=== PATIENT | male | born 1960 | race Caucasian/White ===

== ENCOUNTER 2018-09-21 13:03 | Emergency (ER) | payer OTHER ==
[2018-09-21 13:35] LABS: #Basophils 0.1 thou/uL (0.0-0.2); #Eosinphils 0.2 thou/uL (0.0-0.7); #Lymphocytes 2.9 thou/uL (1.20-3.40); #Monocytes 1.2 thou/uL (0.11-0.59); #Neutrophils 4.2 thou/uL (1.40-6.50); %Basophils 0.9 % (0.0-1.0); %Eosinophils 1.8 % (0.0-10.0); %Lymphocytes 33.9 % (21.0-51.0); %Monocytes 14.3 % (0.0-10.0); %Neutrophils 49.1 % (42.0-75.0); Hemoglobin 16.4 g/dL (14.0-18.0); Mean Corpuscular HGB CONC 33.9 g/dL (32.0-36.0); Mean Corpuscular Hemoglobin 29.5 pg (27.0-31.0); Mean Corpuscular Volume 87.1 fL (78.0-98.0); Mean Platelet Volume 8.7 fL (7.4-10.4); Platelet Count 294 thou/uL (130-400); RBC Distribution Width 11.5 % (11.5-14.5); Red Blood Cell (RBC) Count 5.55 mill/uL (4.70-6.10); White Blood Cell (WBC) Count 8.6 thou/uL (4.8-10.8)
[2018-09-21 13:44] LABS: INR-International Normal Ratio 0.9; PTT 27.9 SEC (22.9-36.1); Prothrombin Time 12.4 SEC (12.0-14.7)
--- NOTE | 2018-09-21 13:47 | RAD ---
CHEST 1 VIEW: HISTORY: Chest pain, COPD, right bundle branch block. FINDINGS: Monitor leads overlie the chest. Heart size is normal. The lungs are clear. IMPRESSION: No acute intrathoracic disease. No old studies. POS: [facility]
[2018-09-21 13:58] LABS: Bilirubin Negative (Negative); Blood, Urine Negative (Negative); Clarity CLEAR (Clear); Glucose, Urine (Dipstick) Negative (Negative); Leukocyte Negative (Negative); Nitrite Negative (Negative); Protein, Urine (Dipstick) Negative (Neg-Trace); Specific Gravity, Urine 1.006 (1.002-1.036); Urobilinogen 0.2 mg/dL (0.2-1.0)
[2018-09-21 13:59] LABS: ALT (SGPT) 31 U/L (8-55); AST (SGOT) 21 U/L (5-34); Albumin 4.7 g/dL (3.5-5.0); Alkaline Phosphatase 105 U/L (40-150); Anion Gap 15 mmol/L (10-20); BUN (Urea Nitrogen) 15 mg/dL (8.4-25.7); Bilirubin, Total 0.5 mg/dL (0.2-1.2); CK (CPK) 157 U/L (30-200); Calc. Creatinine Clearance 0 mL/min (70-130); Calcium 9.9 mg/dL (7.8-10.44); Carbon Dioxide 21 mmol/L (22-29); Chloride 105 mmol/L (98-107); Estimated GFR-MDRD 71; Globulin 3.1 g/dL (2.4-3.5); Glucose 93 mg/dL (70-105); Lipase 24 U/L (8-78); Potassium 4.1 mmol/L (3.5-5.1); Protein, Total 7.8 g/dL (6.0-8.3); Sodium 137 mmol/L (136-145)
--- NOTE | 2018-09-21 14:05 | CT ---
HEAD CT WITHOUT CONTRAST: HISTORY: Left arm and leg weakness. Numbness starting last night. Previous CVA with right-sided deficit. Wo rsening than normal expressive aphasia. FINDINGS: Malacic and gliotic change in the left frontal lobe compatible with remote insult. The remainder of the left cerebrum and right cerebrum demonstrate preservation of cortical gudino-white matter different iation. No evidence of hydrocephalus. No midline shift. Basilar cisterns are patent. Hypoattenuation of the left cerebellar hemisphere is noted and may represent an indeterminate insult. Calvarium is intact. Adequate aeration of the paranasal sinuses. Partial [id number] of the left mastoid air cells. IMPRESSION: Findings suggesting remote insult in the left cerebrum and left cerebellar hemisphere. Results of the study discussed with Dr. Morrell 09/21/2018 at 1:54 p.m. CODE SHANNON POS: [facility]
[2018-09-21] MEDS ORDERED: Lorazepam 2 MG/ML VIAL ONE (14:16)
--- NOTE | 2018-09-21 14:57 | CT ---
CT ANGIOGRAM OF THE HEAD CT ANGIOGRAM OF THE NECK: HISTORY: Weakness. Worsening expressive aphasia. Altered mental status. Hypertension. TECHNIQUE: A CT angiogram of the head and neck are performed in the axial plane. Three-dimensional reformatted images are submitted for interpretation. FINDINGS: POSTCONTRAST HEAD CT: Malacic changes in the left cerebrum and left cerebellum. Otherwise, cortical gudino-white matter diff erentiation is preserved. Calvarium is intact. Adequate aeration of the sinuses and mastoid air cells. Bilateral ocular lenses are appropriately located. Both globes are intact. Retrobulbar fat is prese rved. Symmetric attenuation of the optic nerves and ocular rectus muscles. Symmetric attenuation of the parotid and submandibular glands. Thyroid gland is unremarkable. Symmetric attenuation of the sternocleidomastoid muscles. No evidence of lymphadenopathy by size criteria. Cervical spine vertebral body height is maintained. There is no fracture. There varying degrees of central canal stenosis and neural foraminal narrowing on the basis of degenerative change. Upper mediastinum and lung apices do not demonstrate any acute pathology. CT ANGIOGRAM: The aortic arch has appropriate enhancement and luminal diameter. RIGHT CAROTID: The right innominate artery origin has appropriate enhancement and luminal diameter. Mild stenosis i n the proximal aspect of the innominate artery. The right carotid artery has appropriate enhancement and luminal diameter. Minimal calcification of the distal common carotid artery. Carotid bifurcati on and internal carotid artery have appropriate enhancement and luminal diameter. LEFT CAROTID: The left carotid artery origin has appropriate enhancement and luminal diameter. The common carotid artery, carotid bifurcation, and internal carotid artery have overall appropriate enhancement and lum inal diameter. There is a short segment of calcified and noncalcified plaque in the proximal left in ternal carotid artery. Based upon NASCET criteria, there is no significant stenosis. Sagittal image s demonstrate small outpouching of the left carotid bifurcation. The proximal and mid internal carot id artery have appropriate enhancement and luminal diameter. Both cervical vertebral arteries are patent throughout their course in the neck. Left vertebral yamila ry is dominant. Both subclavian arteries are unremarkable. CT ANGIOGRAM OF THE HEAD: The distal cervical and intracranial internal carotid arteries have appropriate enhancement and lumin al diameter. There is atherosclerosis in both cavernous and paraclinoid segments. No evidence of an eurysm at the level of the [place] of [place]. ANTERIOR CIRCULATION: Symmetric enhancement and luminal diameter of the A1 and M1 segments. Proximal A2 segments and MCA b ranches are symmetric. No significant stenosis or occlusion. POSTERIOR CIRCULATION: The right vertebral artery has a PICA artery origin. The left vertebral artery is the sole supplying vessel to the basilar artery which is diminutive. The left and right MATE FIRST have origins. IMPRESSION: 1. No evidence of significant stenosis at the level of the [place] of [place]. No evidence of vascula r occlusion or thrombosis. 2. No significant stenosis of the cervical carotid arteries based upon NASCET criteria. There is ca lcified and noncalcified plaque involving the left carotid artery as described above. There is resul tant mild narrowing based upon NASCET criteria. 3. No evidence of aneurysm of the [place] of [place]. 4. Results of the study discussed with Dr. Renard Morrell 09/21/2018 at 2:22 p.m. CODE CR POS: [facility]
[2018-09-21] MEDS ORDERED: Morphine 4 MG/ML VIAL ONE (15:17)
[2018-09-21] MEDS ORDERED: ISOVUE-370 76%-LOCM 1 ML ONE (15:28)
[2018-09-21] MEDS ORDERED: Ketorolac Tromethamine 30 MG/ML VIAL ONE (18:12)
--- NOTE | 2018-09-25 15:16 | CT ---
FCT ANGIOGRAM OF THE HEAD CT ANGIOGRAM OF THE NECK: HISTORY: Weakness. Worsening expressive aphasia. Altered mental status. Hypertension. TECHNIQUE: A CT angiogram of the head and neck are performed in the axial plane. Three-dimensional reformatted images are submitted for interpretation. FINDINGS: POSTCONTRAST HEAD CT: Malacic changes in the left cerebrum and left cerebellum. Otherwise, cortical gudino-white matter differentiation is preserved. Calvarium is intact. Adequate aeration of the sinuses and mastoid air cells. Bilateral ocular lenses are appropriately located. Both globes are intact. Retrobulbar fat is preserved. Symmetric attenuation of the optic nerves and ocular rectus muscles. Symmetric attenuation of the parotid and submandibular glands. Thyroid gland is unremarkable. Symmetric attenuation of the sternocleidomastoid muscles. No evidence of lymphadenopathy by size criteria. Cervical spine vertebral body height is maintained. There is no fracture. There varying degrees of central canal stenosis and neural foraminal narrowing on the basis of degenerative change. Upper mediastinum and lung apices do not demonstrate any acute pathology. CT ANGIOGRAM: The aortic arch has appropriate enhancement and luminal diameter. RIGHT CAROTID: The right innominate artery origin has appropriate enhancement and luminal diameter. Mild stenosis in the proximal aspect of the innominate artery. The right carotid artery has appropriate enhancement and luminal diameter. Minimal calcification of the distal common carotid artery. Carotid bifurcation and internal carotid artery have appropriate enhancement and luminal diameter. LEFT CAROTID: The left carotid artery origin has appropriate enhancement and luminal diameter. The common carotid artery, carotid bifurcation, and internal carotid artery have overall appropriate enhancement and luminal diameter. There is a short segment of calcified and noncalcified plaque in the proximal left internal carotid artery. Based upon NASCET criteria, there is no significant stenosis. Sagittal images demonstrate small outpouching of the left carotid bifurcation. The proximal and mid internal carotid artery have appropriate enhancement and luminal diameter. Both cervical vertebral arteries are patent throughout their course in the neck. Left vertebral artery is dominant. Both subclavian arteries are unremarkable. CT ANGIOGRAM OF THE HEAD: The distal cervical and intracranial internal carotid arteries have appropriate enhancement and luminal diameter. There is atherosclerosis in both cavernous and paraclinoid segments. No evidence of aneurysm at the level of the eagle of [place]. ANTERIOR CIRCULATION: Symmetric enhancement and luminal diameter of the A1 and M1 segments. Proximal A2 segments and MCA branches are symmetric. No significant stenosis or occlusion. POSTERIOR CIRCULATION: The right vertebral artery has a PICA artery origin. The left vertebral artery is the sole supplying vessel to the basilar artery which is diminutive. The left and right [employer] have origins. IMPRESSION: 1. No evidence of significant stenosis at the level of the eagle of [place]. No evidence of vascular occlusion or thrombosis. 2. No significant stenosis of the cervical carotid arteries based upon NASCET criteria. There is calcified and noncalcified plaque involving the left carotid artery as described above. There is resultant mild narrowing based upon NASCET criteria. 3. No evidence of aneurysm of the eagle of [place]. 4. Results of the study discussed with Dr. Renard Morrell 09/21/2018 at 2:22 p.m. CODE CR Transcribed Date/Time: 09/25/2018 3:16 PM
== END 2018-09-21 20:00 | disposition short-term general hospital (02) ==
LOC: EEVIPCON 13:03 → ERS 13:03
DX: R07.89 Other chest pain (principal); R53.1 Weakness; J44.9 Chronic obstructive pulmonary disease, unspecified; E03.9 Hypothyroidism, unspecified; E78.5 Hyperlipidemia, unspecified; I10 Essential (primary) hypertension; F43.10 Post-traumatic stress disorder, unspecified; Z79.82 Long term (current) use of aspirin; Z86.73 Personal history of transient ischemic attack (TIA), and cerebral infarction without residual deficits; Z79.899 Other long term (current) drug therapy
CPT/HCPCS: 36415; 36416; 70450; 70496; 70498; 71045; 80053; 81003; 82550; 83690; 83880; 84484; 85025; 85610; 85730; 93005; 96374; 96375; J1885; J2060; J2270; Q9966

== ENCOUNTER 2021-06-21 22:40 | Inpatient (IN) | payer OTHER ==
[~2021-06-21 22:40] MED LIST: Iopamidol-370 76% 500 ML 1 ML ONE
[2021-06-21 23:25] LABS: #Basophils 0.1 thou/uL (0.0-0.2); #Eosinphils 0.2 thou/uL (0.0-0.7); #Lymphocytes 2.6 thou/uL (1.20-3.40); #Monocytes 1.1 thou/uL (0.11-0.59); %Basophils 0.9 % (0.0-1.0); %Eosinophils 2.7 % (0.0-10.0); %Lymphocytes 28.6 % (21.0-51.0); %Monocytes 12.1 % (0.0-10.0); %Neutrophils 55.6 % (42.0-75.0); Hemoglobin 15.4 g/dL (14.0-18.0); Mean Corpuscular HGB CONC 34.3 g/dL (32.0-36.0); Mean Corpuscular Hemoglobin 30.8 pg (27.0-31.0); Mean Platelet Volume 8.5 fL (7.4-10.4); Platelet Count 256 thou/uL (130-400); RBC Distribution Width 11.7 % (11.5-14.5)
[2021-06-21 23:39] LABS: Prothrombin Time 13.3 sec (12.0-14.7)
[2021-06-21] MEDS ORDERED: levETIRAcetam in NS 1,500 MG in Premix Bag 1 BAG IVPB SCH (23:45)
[2021-06-21 23:48] LABS: Acetaminophen Less than 6.0 mcg/mL (10.0-30.0); Alcohol Less than 10 mg/dL (Less than 10); Salicylate Less than 8.0 mg/dL (15.0-30.0)
[2021-06-21 23:49] LABS: ALT (SGPT) 23 U/L (8-55); AST (SGOT) 19 U/L (5-34); Albumin 4.1 g/dL (3.5-5.0); Alkaline Phosphatase 77 U/L (40-110); Anion Gap 14 mmol/L (10-20); BUN (Urea Nitrogen) 20 mg/dL (8.4-25.7); Bilirubin, Total 0.4 mg/dL (0.2-1.2); Calc. Creatinine Clearance 0 mL/min (70-130); Calcium 8.8 mg/dL (7.8-10.44); Carbon Dioxide 21 mmol/L (22-29); Chloride 109 mmol/L (98-107); Globulin 2.6 g/dL (2.4-3.5); Glucose 91 mg/dL (70-105); Potassium 3.6 mmol/L (3.5-5.1); Protein, Total 6.7 g/dL (6.0-8.3); Sodium 140 mmol/L (136-145)
[2021-06-22] MEDS ORDERED: Acetaminophen 325 MG Suppository ONE (00:17)
[2021-06-22 05:08] LABS: Troponin I Less than 0.010 ng/mL (< 0.028)
[2021-06-22 05:12] LABS: Amphetamine Not Detected (NotDetected); Barbiturates Screen Not Detected (NotDetected); Benzodiazepine Screen Not Detected (NotDetected); Cocaine Metabolite Screen Not Detected (NotDetected); Methadone Not Detected (NotDetected); Methamphetamine Not Detected (NotDetected); Opiate Screen Not Detected (NotDetected); Oxycodone Screen Not Detected (NotDetected); Phencyclidine (PCP) Not Detected (NotDetected); THC/Cannabinoid Screen Not Detected (NotDetected); Tricyclic Screen Not Detected (NotDetected)
[2021-06-22 06:07] LABS: SARS-CoV-2 NAA Rapid Test Not Detected (NotDetected)
[2021-06-22 07:29] LABS: Troponin I 0.031 ng/mL (< 0.028)
[2021-06-22] MEDS ORDERED: levETIRAcetam in NS 100 ML ONE (08:21)
[2021-06-22] MEDS ORDERED: Heparin 10,000 UNITS/ 10 ML VIAL ONE (08:21)
[2021-06-22] MEDS: levETIRAcetam in NS 1,000 MG in Premix Bag 1 BAG IVPB SCH ×2 (10:33→20:53)
[2021-06-22] MEDS: Heparin 5,000 UNITS/ML VIAL SC SCH ×3 (10:42→20:53)
[2021-06-22 10:45] VITALS: BMI 32.3
[2021-06-22] MEDS: Sodium Chloride 0.9% 1,000 ML IV SCH (11:02)
[2021-06-22] MEDS ORDERED: hydrALAZINE 20 MG/ML VIAL ONE (11:48)
[2021-06-22] MEDS ORDERED: Lisinopril 20 MG TAB PO SCH ×2 (17:00)
[2021-06-22] MEDS ORDERED: Aspirin 325 MG TAB PO SCH (17:00)
[2021-06-22 17:45] LABS: Troponin I Less than 0.010 ng/mL (< 0.028)
[2021-06-22] MEDS: Atorvastatin Calcium 40 MG TAB PO SCH (20:53)
[2021-06-22] MEDS ORDERED: Atorvastatin Calcium 40 MG TAB PO SCH (21:00)
[2021-06-22] MEDS: Acetaminophen 325 MG TAB PO PRN (22:20)
[2021-06-22 23:14] LABS: Troponin I Less than 0.010 ng/mL (< 0.028)
[2021-06-22 23:20] LABS: Anion Gap 13 mmol/L (10-20); BUN (Urea Nitrogen) 18 mg/dL (8.4-25.7); Calc. Creatinine Clearance 96 mL/min (70-130); Calcium 8.9 mg/dL (7.8-10.44); Carbon Dioxide 22 mmol/L (22-29); Chloride 109 mmol/L (98-107); Glucose 76 mg/dL (70-105); Magnesium 2.3 mg/dL (1.6-2.6); Phosphorus 3.6 mg/dL (2.3-4.7); Potassium 3.5 mmol/L (3.5-5.1); Sodium 140 mmol/L (136-145)
[2021-06-22] MEDS ORDERED: Donnatal Elixir 16.2 MG/5 ML UDCUP PO ONE (23:45)
[2021-06-22] MEDS ORDERED: Mag-Al 1200 mg/1200 mg/30 ML UDCUP PO ONE (23:45)
[2021-06-23] MEDS ORDERED: Aluminum & Magnesium Hydroxide 30 ML, Donnatal Elixir 32.4 MG SSW SCH (00:15)
[2021-06-23] MEDS: Sodium Chloride 0.9% 1,000 ML IV SCH ×2 (00:40→16:07)
[2021-06-23 06:06] LABS: #Eosinphils 0.5 thou/uL (0.0-0.7); #Lymphocytes 2.3 thou/uL (1.20-3.40); #Monocytes 0.7 thou/uL (0.11-0.59); #Neutrophils 2.8 thou/uL (1.40-6.50); %Basophils 0.7 % (0.0-1.0); %Eosinophils 7.4 % (0.0-10.0); %Lymphocytes 36.6 % (21.0-51.0); %Monocytes 10.7 % (0.0-10.0); %Neutrophils 44.6 % (42.0-75.0); Hemoglobin 14.9 g/dL (14.0-18.0); Mean Corpuscular HGB CONC 33.4 g/dL (32.0-36.0); Mean Corpuscular Hemoglobin 30.6 pg (27.0-31.0); Mean Corpuscular Volume 91.7 fL (78.0-98.0); Platelet Count 206 thou/uL (130-400); Red Blood Cell (RBC) Count 4.86 mill/uL (4.70-6.10); White Blood Cell (WBC) Count 6.3 thou/uL (4.8-10.8)
[2021-06-23 06:28] LABS: Anion Gap 11 mmol/L (10-20); BUN (Urea Nitrogen) 19 mg/dL (8.4-25.7); Calc. Creatinine Clearance 104 mL/min (70-130); Calcium 8.6 mg/dL (7.8-10.44); Carbon Dioxide 22 mmol/L (22-29); Chloride 110 mmol/L (98-107); Glucose 105 mg/dL (70-105); Potassium 3.7 mmol/L (3.5-5.1); Sodium 139 mmol/L (136-145)
[2021-06-23] MEDS ORDERED: Amlodipine 10 MG TAB PO SCH (09:00)
[2021-06-23] MEDS ORDERED: Lisinopril 20 MG TAB PO SCH (09:00)
[2021-06-23] MEDS ORDERED: Aspirin 300 MG Suppository PR SCH (09:00)
[2021-06-23] MEDS ORDERED: Lorazepam 0.5 MG TAB PO PRN (09:02)
[2021-06-23] MEDS: Heparin 5,000 UNITS/ML VIAL SC SCH ×3 (09:29→20:17)
[2021-06-23] MEDS: Aspirin 325 MG TAB PO SCH (09:29)
[2021-06-23] MEDS: levETIRAcetam in NS 1,000 MG in Premix Bag 1 BAG IVPB SCH (09:31)
[2021-06-23] MEDS: Lisinopril 20 MG TAB PO SCH (09:32)
[2021-06-23] MEDS: Acetaminophen 325 MG TAB PO PRN (09:33)
[2021-06-23 15:17] LABS: Cardiac Risk 5.3 (Less than 4.5)
[2021-06-23] MEDS: Atorvastatin Calcium 40 MG TAB PO SCH (20:18)
[2021-06-24] MEDS: Sodium Chloride 0.9% 1,000 ML IV SCH ×2 (02:01→04:27)
[2021-06-24 06:40] LABS: #Basophils 0.1 thou/uL (0.0-0.2); #Eosinphils 0.5 thou/uL (0.0-0.7); #Lymphocytes 2.7 thou/uL (1.20-3.40); #Monocytes 0.9 thou/uL (0.11-0.59); #Neutrophils 3.1 thou/uL (1.40-6.50); %Basophils 0.8 % (0.0-1.0); %Eosinophils 7.1 % (0.0-10.0); %Lymphocytes 37.2 % (21.0-51.0); %Monocytes 12.6 % (0.0-10.0); %Neutrophils 42.4 % (42.0-75.0); Hemoglobin 15.7 g/dL (14.0-18.0); Mean Corpuscular HGB CONC 33.5 g/dL (32.0-36.0); Mean Corpuscular Hemoglobin 30.5 pg (27.0-31.0); Mean Corpuscular Volume 91.3 fL (78.0-98.0); Mean Platelet Volume 8.3 fL (7.4-10.4); Platelet Count 230 thou/uL (130-400); RBC Distribution Width 11.8 % (11.5-14.5); Red Blood Cell (RBC) Count 5.13 mill/uL (4.70-6.10); White Blood Cell (WBC) Count 7.2 thou/uL (4.8-10.8)
[2021-06-24 07:06] LABS: Anion Gap 11 mmol/L (10-20); BUN (Urea Nitrogen) 12 mg/dL (8.4-25.7); Calc. Creatinine Clearance 107 mL/min (70-130); Calcium 8.5 mg/dL (7.8-10.44); Carbon Dioxide 21 mmol/L (22-29); Chloride 111 mmol/L (98-107); Glucose 95 mg/dL (70-105); Potassium 3.9 mmol/L (3.5-5.1); Sodium 139 mmol/L (136-145)
[2021-06-24] MEDS: Aspirin 325 MG TAB PO SCH (08:31)
[2021-06-24] MEDS: Clopidogrel Bisulfate 75 MG TAB PO SCH (08:31)
[2021-06-24] MEDS: Lisinopril 20 MG TAB PO SCH ×2 (08:33→21:30)
[2021-06-24] MEDS: Heparin 5,000 UNITS/ML VIAL SC SCH ×3 (08:33→21:30)
[2021-06-24] MEDS: Acetaminophen 325 MG TAB PO PRN ×2 (08:34→14:24)
[2021-06-24] MEDS ORDERED: Amlodipine 5 MG TAB PO SCH ×2 (12:45→19:30)
[2021-06-24 14:08] LABS: Syphilis Antibody Nonreactive (Nonreactive); Syphilis Antibody Index 0.07 S/CO (<1.00 Non-Reactive)
[2021-06-24] MEDS: hydrALAZINE 20 MG/ML VIAL SLOW IVP PRN (18:11)
[2021-06-24] MEDS ORDERED: Nitroglycerin 0.4 MG TAB (25 Tab Bottle) SL PRN (21:11)
[2021-06-24] MEDS: Atorvastatin Calcium 40 MG TAB PO SCH (21:29)
[2021-06-24 22:27] LABS: Anion Gap 10 mmol/L (10-20); BUN (Urea Nitrogen) 12 mg/dL (8.4-25.7); Calc. Creatinine Clearance 97 mL/min (70-130); Calcium 9.1 mg/dL (7.8-10.44); Carbon Dioxide 22 mmol/L (22-29); Chloride 110 mmol/L (98-107); Glucose 108 mg/dL (70-105); Magnesium 2.1 mg/dL (1.6-2.6); Potassium 3.5 mmol/L (3.5-5.1); Sodium 138 mmol/L (136-145)
[2021-06-24 22:57] LABS: Troponin I Less than 0.010 ng/mL (< 0.028)
[2021-06-25 06:46] LABS: #Basophils 0.1 thou/uL (0.0-0.2); #Eosinphils 0.5 thou/uL (0.0-0.7); #Lymphocytes 2.3 thou/uL (1.20-3.40); #Monocytes 0.8 thou/uL (0.11-0.59); #Neutrophils 2.8 thou/uL (1.40-6.50); %Basophils 1.2 % (0.0-1.0); %Eosinophils 7.8 % (0.0-10.0); %Lymphocytes 35.6 % (21.0-51.0); %Monocytes 12.3 % (0.0-10.0); %Neutrophils 43.2 % (42.0-75.0); Hemoglobin 16.4 g/dL (14.0-18.0); Mean Corpuscular HGB CONC 32.5 g/dL (32.0-36.0); Mean Corpuscular Hemoglobin 29.7 pg (27.0-31.0); Mean Corpuscular Volume 91.4 fL (78.0-98.0); Mean Platelet Volume 8.5 fL (7.4-10.4); Platelet Count 259 thou/uL (130-400); Red Blood Cell (RBC) Count 5.51 mill/uL (4.70-6.10); White Blood Cell (WBC) Count 6.5 thou/uL (4.8-10.8)
[2021-06-25 07:07] LABS: Anion Gap 11 mmol/L (10-20); BUN (Urea Nitrogen) 12 mg/dL (8.4-25.7); Calc. Creatinine Clearance 109 mL/min (70-130); Calcium 9.2 mg/dL (7.8-10.44); Carbon Dioxide 20 mmol/L (22-29); Chloride 111 mmol/L (98-107); Glucose 90 mg/dL (70-105); Potassium 3.7 mmol/L (3.5-5.1); Sodium 138 mmol/L (136-145)
[2021-06-25] MEDS: Clopidogrel Bisulfate 75 MG TAB PO SCH (08:03)
[2021-06-25] MEDS: Lisinopril 20 MG TAB PO SCH ×2 (08:03→20:53)
[2021-06-25] MEDS: Heparin 5,000 UNITS/ML VIAL SC SCH ×3 (08:04→20:53)
[2021-06-25] MEDS: Aspirin 325 MG TAB PO SCH ×2 (08:12→08:18)
[2021-06-25] MEDS ORDERED: Amlodipine 10 MG TAB PO SCH (09:00)
[2021-06-25] MEDS ORDERED: Amlodipine 5 MG TAB PO SCH (09:00)
[2021-06-25] MEDS: hydrALAZINE 20 MG/ML VIAL SLOW IVP PRN ×2 (11:43→20:57)
[2021-06-25] MEDS: levETIRAcetam 500 MG TAB PO SCH (20:52)
[2021-06-25] MEDS: Atorvastatin Calcium 40 MG TAB PO SCH (20:52)
[2021-06-25] MEDS: Acetaminophen 325 MG TAB PO PRN (20:52)
[2021-06-26] MEDS ORDERED: NIFEdipine XL 60 MG TAB PO SCH (09:00)
[2021-06-26] MEDS: Heparin 5,000 UNITS/ML VIAL SC SCH ×2 (09:34→15:57)
[2021-06-26] MEDS: levETIRAcetam 500 MG TAB PO SCH (09:35)
[2021-06-26] MEDS: Lisinopril 20 MG TAB PO SCH (09:35)
[2021-06-26] MEDS: Aspirin 325 MG TAB PO SCH (09:35)
[2021-06-26] MEDS: Clopidogrel Bisulfate 75 MG TAB PO SCH (09:35)
[2021-06-26] MEDS: hydrALAZINE 20 MG/ML VIAL SLOW IVP PRN (11:34)
[2021-06-26 16:12] VITALS: TEMP 98
[2021-06-26 16:13] VITALS: BP 166/92
== END 2021-06-26 19:20 | DRG 65 ==
LOC: ERS 22:40 → ERHOLD 06-22 02:40 → EEVIPCON 06-22 02:40 → NEURO 06-22 16:25
PROVIDERS: ADMIT Internal Medicine; ATTEND Internal Medicine
DX: I63.89 Other cerebral infarction (principal); I69.351 Hemiplegia and hemiparesis following cerebral infarction affecting right dominant side; Z20.822 Contact with and (suspected) exposure to COVID-19; J44.9 Chronic obstructive pulmonary disease, unspecified; E03.9 Hypothyroidism, unspecified; E78.5 Hyperlipidemia, unspecified; E78.00 Pure hypercholesterolemia, unspecified; I10 Essential (primary) hypertension; G40.909 Epilepsy, unspecified, not intractable, without status epilepticus; F43.10 Post-traumatic stress disorder, unspecified; I45.10 Unspecified right bundle-branch block; G93.89 Other specified disorders of brain; Z88.1 Allergy status to other antibiotic agents; Z88.0 Allergy status to penicillin; Z88.8 Allergy status to other drugs, medicaments and biological substances; Z79.82 Long term (current) use of aspirin; Z79.899 Other long term (current) drug therapy; Z85.038 Personal history of other malignant neoplasm of large intestine; Z90.49 Acquired absence of other specified parts of digestive tract; Z93.3 Colostomy status
CPT/HCPCS: 36415; 36416; 70450; 70496; 70498; 70551; 71045; 80048; 80053; 80061; 80185; 80306; 80307; 83036; 83735; 84100; 84484; 85025; 85610; 85730; 86780; 93005; 93010; 93306; J0360; J1644; J1953; J7050; Q9967; U0002

== ENCOUNTER 2022-12-14 13:18 | Inpatient (IN) | payer OTHER ==
[~2022-12-14 13:18] MED LIST changes: -Iopamidol-370 76% 500 ML 1 ML ONE; +Iopamidol-370 76% 500 ML MDV (1 ML CHARGE) ONE
[2022-12-14] MEDS ORDERED: niCARdipine 25 MG/10 ML SDV ONE (14:08)
[2022-12-14] MEDS ORDERED: Tenecteplase 50 MG ONE (14:15)
[2022-12-14 14:27] LABS: #Basophils 0.1 thou/uL (0.0-0.2); #Eosinphils 0.2 thou/uL (0.0-0.7); #Monocytes 1.2 thou/uL (0.11-0.59); #Neutrophils 6.6 thou/uL (1.40-6.50); %Basophils 0.5 % (0.0-1.0); %Lymphocytes 18.6 % (21.0-51.0); %Monocytes 11.8 % (0.0-10.0); %Neutrophils 66.6 % (42.0-75.0); Hemoglobin 15.4 g/dL (14.0-18.0); Mean Corpuscular HGB CONC 34.3 g/dL (32.0-36.0); Mean Corpuscular Hemoglobin 29.8 pg (27.0-31.0); Mean Corpuscular Volume 86.8 fl (78.0-98.0); Mean Platelet Volume 11.5 fL (7.4-10.4); Platelet Count 250 10x3/uL (130-400); RBC Distribution Width 12.6 % (11.5-14.5); Red Blood Cell (RBC) Count 5.17 mill/uL (4.70-6.10); White Blood Cell (WBC) Count 9.9 10x3/uL (4.8-10.8)
[2022-12-14 14:58] LABS: ALT (SGPT) 18 U/L (8-55); AST (SGOT) 17 U/L (5-34); Alkaline Phosphatase 88 U/L (40-110); BUN (Urea Nitrogen) 15 mg/dL (8.4-25.7); Calc. Creatinine Clearance 0 mL/min (70-130); Estimated GFR 57
[2022-12-14 14:59] LABS: PTT 28.9 sec (22.9-36.1); Prothrombin Time 13.6 sec (12.0-14.7)
[2022-12-14] MEDS ORDERED: Calcium Carbonate 500 MG ChewTAB PO PRN (15:19)
[2022-12-14] MEDS ORDERED: Ondansetron PF 4 MG/2 ML Vial IVP PRN (15:19)
[2022-12-14] MEDS ORDERED: Senokot S 8.6-50 MG TAB PO PRN (15:19)
[2022-12-14] MEDS ORDERED: HYDROcodone/Acetaminophen 5/325 mg Tablet PO PRN (15:19)
[2022-12-14] MEDS ORDERED: Bisacodyl 5 MG TAB PO PRN (15:19)
[2022-12-14] MEDS ORDERED: Labetalol HCl 100 MG/20 ML VIAL SLOW IVP PRN (15:23)
[2022-12-14] MEDS ORDERED: niCARdipine 25 MG in Sodium Chloride 0.9% 250 ML 250 ML IVPB PRN (15:23)
[2022-12-14 15:32] LABS: Albumin 4.3 g/dL (3.5-5.0); Calcium 8.9 mg/dL (7.8-10.44); Chloride 107 mmol/L (98-107); Globulin 2.6 g/dL (2.4-3.5); Glucose 118 mg/dL (70-105); Potassium 3.6 mmol/L (3.5-5.1); Protein, Total 6.9 g/dL (6.0-8.3); Sodium 137 mmol/L (136-145)
[2022-12-14 15:33] LABS: Anion Gap 14 mmol/L (10-20); Bilirubin, Total 0.7 mg/dL (0.2-1.2); Carbon Dioxide 20 mmol/L (22-29)
[2022-12-14] MEDS ORDERED: niCARdipine 25 MG in Sodium Chloride 0.9% 250 ML 250 ML IVPB SCH (16:00)
[2022-12-14] MEDS: Sodium Chloride 0.9% 1,000 ML IV SCH (18:21)
[2022-12-14] MEDS ORDERED: Atorvastatin Calcium 40 MG TAB PO SCH (21:00)
[2022-12-14] MEDS: Famotidine/PF 20 mg/2ml Vial SLOW IVP SCH (21:59)
[2022-12-15] MEDS: hydrALAZINE 20 MG/ML VIAL SLOW IVP PRN ×4 (00:10→21:24)
[2022-12-15] MEDS ORDERED: Acetaminophen 650 MG Suppository PR PRN (00:19)
[2022-12-15] MEDS: Sodium Chloride 0.9% 1,000 ML IV SCH ×2 (05:50→14:45)
[2022-12-15] MEDS: Communication Order-Pharmacy FS SCH (07:16)
[2022-12-15] MEDS: Famotidine/PF 20 mg/2ml Vial SLOW IVP SCH ×2 (07:19→21:20)
[2022-12-15] MEDS ORDERED: Ipratropium Bromide 2.5 ml Neb NEB PRN (09:58)
[2022-12-15] MEDS ORDERED: Enalaprilat Dihydrate 1.25 MG/ML VIAL SLOW IVP PRN (10:01)
[2022-12-15] MEDS: Fosphenytoin Sodium 200 MG in Sodium Chloride 0.9% 100 ML IVPB SCH (10:51)
[2022-12-15 17:13] LABS: #Basophils 0.1 thou/uL (0.0-0.2); #Eosinphils 0.5 thou/uL (0.0-0.7); #Monocytes 0.7 thou/uL (0.11-0.59); #Neutrophils 6.7 thou/uL (1.40-6.50); %Basophils 0.8 % (0.0-1.0); %Eosinophils 4.7 % (0.0-10.0); %Lymphocytes 17.1 % (21.0-51.0); %Monocytes 7.1 % (0.0-10.0); %Neutrophils 70.1 % (42.0-75.0); Hemoglobin 15.8 g/dL (14.0-18.0); Mean Corpuscular HGB CONC 33.8 g/dL (32.0-36.0); Mean Corpuscular Hemoglobin 30.2 pg (27.0-31.0); Mean Corpuscular Volume 89.3 fl (78.0-98.0); Mean Platelet Volume 11.6 fL (7.4-10.4); Platelet Count 283 10x3/uL (130-400); Red Blood Cell (RBC) Count 5.24 mill/uL (4.70-6.10); White Blood Cell (WBC) Count 9.5 10x3/uL (4.8-10.8)
[2022-12-15 17:42] LABS: ALT (SGPT) 14 U/L (8-55); AST (SGOT) 13 U/L (5-34); Albumin 4.1 g/dL (3.5-5.0); Alkaline Phosphatase 91 U/L (40-110); Anion Gap 17 mmol/L (10-20); BUN (Urea Nitrogen) 16 mg/dL (8.4-25.7); Bilirubin, Total 0.9 mg/dL (0.2-1.2); Calc. Creatinine Clearance 63 mL/min (70-130); Calcium 8.7 mg/dL (7.8-10.44); Carbon Dioxide 18 mmol/L (22-29); Cardiac Risk 5.6 (Less than 4.5); Chloride 106 mmol/L (98-107); Cholesterol 196 mg/dl (< 200 Desired); Estimated GFR 48; Globulin 2.9 g/dL (2.4-3.5); Glucose 199 mg/dL (70-105); HDL Cholesterol 35 mg/dL (>60 Neg Risk); LDL Cholesterol, Calculated 141 mg/dL; Potassium 3.5 mmol/L (3.5-5.1); Sodium 137 mmol/L (136-145); Triglycerides 99 mg/dL (Less than 150)
[2022-12-15] MEDS: Atorvastatin Calcium 40 MG TAB PO SCH (21:21)
[2022-12-16] MEDS: Fosphenytoin Sodium 200 MG in Sodium Chloride 0.9% 100 ML IVPB SCH ×2 (01:06→12:06)
[2022-12-16] MEDS: Communication Order-Pharmacy FS SCH (08:19)
[2022-12-16] MEDS: Sodium Chloride 0.9% 1,000 ML IV SCH ×2 (08:20→22:40)
[2022-12-16] MEDS: hydrALAZINE 20 MG/ML VIAL SLOW IVP PRN ×2 (08:21→15:32)
[2022-12-16] MEDS: Famotidine/PF 20 mg/2ml Vial SLOW IVP SCH (08:21)
[2022-12-16] MEDS ORDERED: Potassium Chloride 20 MEQ TAB PO SCH (18:45)
[2022-12-16] MEDS ORDERED: Electrolyte Replacement Protocol 1 EACH FS SCH (18:45)
[2022-12-16] MEDS ORDERED: Aspirin 325 mg Enteric Coated Tablet PO SCH (19:00)
[2022-12-16] MEDS: Atorvastatin Calcium 40 MG TAB PO SCH (20:05)
[2022-12-16] MEDS: Cyanocobalamin (Vitamin B-12) 1,000 MCG TAB PO SCH (20:05)
[2022-12-16] MEDS: Multivit, Therapeutic 1 TAB PO SCH (20:06)
[2022-12-16] MEDS: Phenytoin Extended Release 100 MG CAP PO SCH (20:06)
[2022-12-16] MEDS: Lisinopril 20 MG TAB PO SCH (20:07)
[2022-12-16] MEDS: Famotidine 20 MG TAB PO SCH (20:08)
[2022-12-16] MEDS: Amlodipine 5 MG TAB PO SCH (20:08)
[2022-12-16] MEDS ORDERED: Phenytoin Extended Release 100 MG CAP PO SCH (21:00)
[2022-12-17 05:29] LABS: #Basophils 0.1 thou/uL (0.0-0.2); #Eosinphils 0.6 thou/uL (0.0-0.7); #Monocytes 1.2 thou/uL (0.11-0.59); #Neutrophils 4.4 thou/uL (1.40-6.50); %Basophils 0.6 % (0.0-1.0); %Eosinophils 7.3 % (0.0-10.0); %Lymphocytes 27.9 % (21.0-51.0); %Monocytes 13.4 % (0.0-10.0); %Neutrophils 50.3 % (42.0-75.0); Hemoglobin 15.6 g/dL (14.0-18.0); Mean Corpuscular HGB CONC 33.1 g/dL (32.0-36.0); Mean Corpuscular Hemoglobin 30.2 pg (27.0-31.0); Mean Corpuscular Volume 91.3 fl (78.0-98.0); Mean Platelet Volume 11.4 fL (7.4-10.4); Platelet Count 252 10x3/uL (130-400); Red Blood Cell (RBC) Count 5.17 mill/uL (4.70-6.10); White Blood Cell (WBC) Count 8.7 10x3/uL (4.8-10.8)
[2022-12-17 05:54] LABS: Anion Gap 13 mmol/L (10-20); BUN (Urea Nitrogen) 16 mg/dL (8.4-25.7); Calc. Creatinine Clearance 77 mL/min (70-130); Calcium 9.4 mg/dL (7.8-10.44); Carbon Dioxide 21 mmol/L (22-29); Chloride 110 mmol/L (98-107); Estimated GFR 62; Glucose 83 mg/dL (70-105); Magnesium 2.3 mg/dL (1.6-2.6); Phosphorus 3.1 mg/dL (2.3-4.7); Potassium 4.8 mmol/L (3.5-5.1); Sodium 139 mmol/L (136-145)
[2022-12-17 06:08] LABS: Hemoglobin A1c 5.7 % (4.0-6.0)
[2022-12-17] MEDS: Clopidogrel Bisulfate 75 MG TAB PO SCH (08:07)
[2022-12-17] MEDS: Amlodipine 5 MG TAB PO SCH (08:07)
[2022-12-17] MEDS: Aspirin 81 mg Enteric Coated Tablet PO SCH (08:07)
[2022-12-17] MEDS: Famotidine 20 MG TAB PO SCH ×2 (08:07→20:18)
[2022-12-17] MEDS: Lisinopril 20 MG TAB PO SCH ×2 (08:07→20:17)
[2022-12-17] MEDS: Communication Order-Pharmacy FS SCH (08:28)
[2022-12-17] MEDS: hydrALAZINE 20 MG/ML VIAL SLOW IVP PRN (09:51)
[2022-12-17] MEDS ORDERED: Amlodipine 5 MG TAB PO SCH (11:30)
[2022-12-17] MEDS ORDERED: Hydrochlorothiazide 25 MG TAB PO SCH (11:30)
[2022-12-17] MEDS: hydrALAZINE 25 MG TAB PO SCH ×3 (12:47→20:18)
[2022-12-17] MEDS: Atorvastatin Calcium 40 MG TAB PO SCH (20:17)
[2022-12-17] MEDS: Multivit, Therapeutic 1 TAB PO SCH (20:18)
[2022-12-17] MEDS: Cyanocobalamin (Vitamin B-12) 1,000 MCG TAB PO SCH (20:18)
[2022-12-17] MEDS: Phenytoin Extended Release 100 MG CAP PO SCH (20:18)
[2022-12-17] MEDS: Heparin 5,000 UNITS/ML VIAL SC SCH (20:19)
[2022-12-18] MEDS: hydrALAZINE 25 MG TAB PO SCH ×4 (08:52→21:48)
[2022-12-18] MEDS: Clopidogrel Bisulfate 75 MG TAB PO SCH (08:52)
[2022-12-18] MEDS: Lisinopril 20 MG TAB PO SCH ×2 (08:52→21:47)
[2022-12-18] MEDS: Amlodipine 10 MG TAB PO SCH (08:52)
[2022-12-18] MEDS: Famotidine 20 MG TAB PO SCH ×2 (08:52→21:49)
[2022-12-18] MEDS: Aspirin 81 mg Enteric Coated Tablet PO SCH (08:52)
[2022-12-18] MEDS: Heparin 5,000 UNITS/ML VIAL SC SCH ×2 (08:53→21:44)
[2022-12-18] MEDS: Hydrochlorothiazide 25 MG TAB PO SCH (08:53)
[2022-12-18] MEDS ORDERED: Polyethylene Glycol 3350 17 GM Packet PO SCH (15:15)
[2022-12-18] MEDS: Senokot S 8.6-50 MG TAB PO SCH (21:45)
[2022-12-18] MEDS: Phenytoin Extended Release 100 MG CAP PO SCH (21:46)
[2022-12-18] MEDS: Folic Acid 1 MG TAB PO SCH (21:47)
[2022-12-18] MEDS: Cyanocobalamin (Vitamin B-12) 1,000 MCG TAB PO SCH (21:47)
[2022-12-18] MEDS: Atorvastatin Calcium 40 MG TAB PO SCH (21:49)
[2022-12-18] MEDS: Multivit, Therapeutic 1 TAB PO SCH (21:49)
[2022-12-19 06:25] LABS: #Basophils 0.1 thou/uL (0.0-0.2); #Eosinphils 0.7 thou/uL (0.0-0.7); #Monocytes 1.1 thou/uL (0.11-0.59); #Neutrophils 4.6 thou/uL (1.40-6.50); %Basophils 0.7 % (0.0-1.0); %Eosinophils 7.7 % (0.0-10.0); %Lymphocytes 26.3 % (21.0-51.0); %Monocytes 12.2 % (0.0-10.0); %Neutrophils 52.5 % (42.0-75.0); Hemoglobin 16.6 g/dL (14.0-18.0); Mean Corpuscular HGB CONC 33.7 g/dL (32.0-36.0); Mean Corpuscular Hemoglobin 30.3 pg (27.0-31.0); Mean Corpuscular Volume 89.8 fl (78.0-98.0); Platelet Count 311 10x3/uL (130-400); RBC Distribution Width 12.9 % (11.5-14.5); Red Blood Cell (RBC) Count 5.48 mill/uL (4.70-6.10); White Blood Cell (WBC) Count 8.7 10x3/uL (4.8-10.8)
[2022-12-19 07:01] LABS: Anion Gap 18 mmol/L (10-20); BUN (Urea Nitrogen) 26 mg/dL (8.4-25.7); Calc. Creatinine Clearance 71 mL/min (70-130); Calcium 9.6 mg/dL (7.8-10.44); Carbon Dioxide 15 mmol/L (22-29); Chloride 106 mmol/L (98-107); Estimated GFR 56; Glucose 90 mg/dL (70-105); Potassium 4.4 mmol/L (3.5-5.1); Sodium 135 mmol/L (136-145)
[2022-12-19] MEDS: hydrALAZINE 25 MG TAB PO SCH ×4 (09:18→21:24)
[2022-12-19] MEDS: Clopidogrel Bisulfate 75 MG TAB PO SCH (09:19)
[2022-12-19] MEDS: Amlodipine 10 MG TAB PO SCH (09:19)
[2022-12-19] MEDS: Heparin 5,000 UNITS/ML VIAL SC SCH ×2 (09:19→21:25)
[2022-12-19] MEDS: Aspirin 81 mg Enteric Coated Tablet PO SCH (09:19)
[2022-12-19] MEDS: Lisinopril 20 MG TAB PO SCH ×2 (09:19→21:22)
[2022-12-19] MEDS: Hydrochlorothiazide 25 MG TAB PO SCH (09:19)
[2022-12-19] MEDS: Famotidine 20 MG TAB PO SCH ×2 (09:19→21:23)
[2022-12-19] MEDS: Senokot S 8.6-50 MG TAB PO SCH ×2 (09:22→21:25)
[2022-12-19] MEDS: Polyethylene Glycol 3350 17 GM Packet PO SCH (09:22)
[2022-12-19 12:51] LABS: Lactic Acid 0.6 mmol/L (0.5-2.2)
[2022-12-19 12:58] LABS: Anion Gap 14 mmol/L (10-20); BUN (Urea Nitrogen) 27 mg/dL (8.4-25.7); Calc. Creatinine Clearance 74 mL/min (70-130); Calcium 9.8 mg/dL (7.8-10.44); Carbon Dioxide 18 mmol/L (22-29); Chloride 107 mmol/L (98-107); Estimated GFR 60; Glucose 81 mg/dL (70-105); Potassium 3.9 mmol/L (3.5-5.1); Sodium 135 mmol/L (136-145)
[2022-12-19] MEDS ORDERED: Lorazepam 1 MG TAB PO PRN (14:07)
[2022-12-19] MEDS: Multivit, Therapeutic 1 TAB PO SCH (21:22)
[2022-12-19] MEDS: Atorvastatin Calcium 40 MG TAB PO SCH (21:23)
[2022-12-19] MEDS: Phenytoin Extended Release 100 MG CAP PO SCH (21:23)
[2022-12-19] MEDS: Cyanocobalamin (Vitamin B-12) 1,000 MCG TAB PO SCH (21:24)
[2022-12-19] MEDS: Folic Acid 1 MG TAB PO SCH (21:24)
[2022-12-20 06:52] LABS: Anion Gap 17 mmol/L (10-20); BUN (Urea Nitrogen) 39 mg/dL (8.4-25.7); Calc. Creatinine Clearance 44 mL/min (70-130); Calcium 9.3 mg/dL (7.8-10.44); Carbon Dioxide 19 mmol/L (22-29); Chloride 105 mmol/L (98-107); Estimated GFR 32; Glucose 94 mg/dL (70-105); Sodium 137 mmol/L (136-145)
[2022-12-20] MEDS: hydrALAZINE 25 MG TAB PO SCH ×3 (08:43→20:55)
[2022-12-20] MEDS: Aspirin 81 mg Enteric Coated Tablet PO SCH (08:44)
[2022-12-20] MEDS: Clopidogrel Bisulfate 75 MG TAB PO SCH (08:44)
[2022-12-20] MEDS: Famotidine 20 MG TAB PO SCH (08:44)
[2022-12-20] MEDS: Amlodipine 10 MG TAB PO SCH (08:45)
[2022-12-20] MEDS: Heparin 5,000 UNITS/ML VIAL SC SCH ×2 (08:45→21:00)
[2022-12-20] MEDS: Polyethylene Glycol 3350 17 GM Packet PO SCH (10:58)
[2022-12-20] MEDS: Senokot S 8.6-50 MG TAB PO SCH ×2 (10:59→20:54)
[2022-12-20] MEDS ORDERED: Sodium Bicarbonate 150 MEQ in Dextrose 5% in Water 1,000 ML IV SCH (11:00)
[2022-12-20 12:03] LABS: Bacteria/HPF None Seen HPF (None Seen); Bilirubin Negative (Negative); Blood, Urine Negative (Negative); Clarity Clear (Clear); Glucose, Urine (Dipstick) Normal (Negative); Ketone, Urine Negative (Negative); Leukocyte Negative Leu/uL (Negative); Nitrite Negative (Negative); Protein, Urine (Dipstick) Negative (Neg-Trace); RBC/HPF 0-3 HPF (0-3); Specific Gravity, Urine 1.019 (1.002-1.036); Squamous Epithelial 0-3 HPF (0-3); Urobilinogen Normal mg/dL (Less than 2); WBC/HPF 0-3 HPF (0-3)
[2022-12-20 12:29] LABS: Protein, Urine Random Quant 13 mg/dL (1-14); Sodium, Urine 39 mmol/L (Not Available); Urea Nitrogen, Random Urine 763 mg/dl
[2022-12-20 19:35] LABS: Chloride 102 mmol/L (98-107); Sodium 134 mmol/L (136-145)
[2022-12-20 19:36] LABS: Calcium 9.3 mg/dL (7.8-10.44); Glucose 92 mg/dL (70-105)
[2022-12-20 19:38] LABS: Carbon Dioxide 19 mmol/L (22-29)
[2022-12-20 19:39] LABS: Calc. Creatinine Clearance 55 mL/min (70-130); Estimated GFR 42
[2022-12-20 19:40] LABS: BUN (Urea Nitrogen) 35 mg/dL (8.4-25.7)
[2022-12-20 19:45] LABS: Anion Gap 17 mmol/L (10-20)
[2022-12-20] MEDS: Atorvastatin Calcium 40 MG TAB PO SCH (20:54)
[2022-12-20] MEDS: Folic Acid 1 MG TAB PO SCH (20:56)
[2022-12-20] MEDS: Cyanocobalamin (Vitamin B-12) 1,000 MCG TAB PO SCH (20:59)
[2022-12-20] MEDS: Multivit, Therapeutic 1 TAB PO SCH (21:00)
[2022-12-20] MEDS: Phenytoin Extended Release 100 MG CAP PO SCH (21:00)
[2022-12-21] MEDS: Sodium Bicarbonate 150 MEQ in Dextrose 5% in Water 1,000 ML IV SCH ×2 (04:39→17:19)
[2022-12-21 05:56] LABS: Anion Gap 15 mmol/L (10-20); BUN (Urea Nitrogen) 33 mg/dL (8.4-25.7); Calc. Creatinine Clearance 66 mL/min (70-130); Carbon Dioxide 23 mmol/L (22-29); Chloride 101 mmol/L (98-107); Estimated GFR 51; Glucose 107 mg/dL (70-105); Potassium 3.7 mmol/L (3.5-5.1); Sodium 135 mmol/L (136-145)
[2022-12-21] MEDS: hydrALAZINE 25 MG TAB PO SCH ×3 (09:46→20:18)
[2022-12-21] MEDS: Clopidogrel Bisulfate 75 MG TAB PO SCH (09:46)
[2022-12-21] MEDS: Amlodipine 10 MG TAB PO SCH (09:46)
[2022-12-21] MEDS: Aspirin 81 mg Enteric Coated Tablet PO SCH (09:46)
[2022-12-21] MEDS: Heparin 5,000 UNITS/ML VIAL SC SCH ×2 (09:47→20:18)
[2022-12-21] MEDS: Famotidine 20 MG TAB PO SCH (09:47)
[2022-12-21] MEDS: Polyethylene Glycol 3350 17 GM Packet PO SCH (14:19)
[2022-12-21] MEDS: Senokot S 8.6-50 MG TAB PO SCH ×2 (14:19→20:15)
[2022-12-21] MEDS: Atorvastatin Calcium 40 MG TAB PO SCH (20:18)
[2022-12-21] MEDS: Folic Acid 1 MG TAB PO SCH (20:18)
[2022-12-21] MEDS: Phenytoin Extended Release 100 MG CAP PO SCH (20:18)
[2022-12-21] MEDS: Multivit, Therapeutic 1 TAB PO SCH (20:18)
[2022-12-21] MEDS: Cyanocobalamin (Vitamin B-12) 1,000 MCG TAB PO SCH (20:18)
[2022-12-22] MEDS: Sodium Bicarbonate 150 MEQ in Dextrose 5% in Water 1,000 ML IV SCH (05:24)
[2022-12-22 06:09] LABS: Anion Gap 15 mmol/L (10-20); BUN (Urea Nitrogen) 21 mg/dL (8.4-25.7); Calc. Creatinine Clearance 75 mL/min (70-130); Calcium 8.9 mg/dL (7.8-10.44); Carbon Dioxide 26 mmol/L (22-29); Chloride 100 mmol/L (98-107); Estimated GFR 59; Glucose 113 mg/dL (70-105); Potassium 3.6 mmol/L (3.5-5.1); Sodium 137 mmol/L (136-145)
[2022-12-22] MEDS: Polyethylene Glycol 3350 17 GM Packet PO SCH (08:45)
[2022-12-22] MEDS: Senokot S 8.6-50 MG TAB PO SCH ×2 (08:45→20:31)
[2022-12-22] MEDS: hydrALAZINE 25 MG TAB PO SCH ×3 (08:47→20:30)
[2022-12-22] MEDS: Clopidogrel Bisulfate 75 MG TAB PO SCH (08:47)
[2022-12-22] MEDS: Amlodipine 10 MG TAB PO SCH (08:47)
[2022-12-22] MEDS: Famotidine 20 MG TAB PO SCH ×2 (08:48→20:30)
[2022-12-22] MEDS: Aspirin 81 mg Enteric Coated Tablet PO SCH (08:48)
[2022-12-22] MEDS: Heparin 5,000 UNITS/ML VIAL SC SCH ×2 (08:49→20:30)
[2022-12-22] MEDS: Atorvastatin Calcium 40 MG TAB PO SCH (20:29)
[2022-12-22] MEDS: Multivit, Therapeutic 1 TAB PO SCH (20:29)
[2022-12-22] MEDS: Phenytoin Extended Release 100 MG CAP PO SCH (20:29)
[2022-12-22] MEDS: Cyanocobalamin (Vitamin B-12) 1,000 MCG TAB PO SCH (20:29)
[2022-12-22] MEDS: Folic Acid 1 MG TAB PO SCH (20:30)
[2022-12-23 07:57] LABS: Anion Gap 14 mmol/L (10-20); BUN (Urea Nitrogen) 19 mg/dL (8.4-25.7); BUN/Creatinine Ratio 14.73; Calc. Creatinine Clearance 80 mL/min (70-130); Calcium 9.1 mg/dL (7.8-10.44); Carbon Dioxide 19 mmol/L (22-29); Chloride 105 mmol/L (98-107); Estimated GFR 63; Glucose 127 mg/dL (70-105); Potassium 4.2 mmol/L (3.5-5.1); Sodium 134 mmol/L (136-145)
[2022-12-23] MEDS: Amlodipine 10 MG TAB PO SCH (08:08)
[2022-12-23] MEDS: Clopidogrel Bisulfate 75 MG TAB PO SCH (08:08)
[2022-12-23] MEDS: hydrALAZINE 25 MG TAB PO SCH ×3 (08:08→21:43)
[2022-12-23] MEDS: Senokot S 8.6-50 MG TAB PO SCH ×2 (08:09→21:44)
[2022-12-23] MEDS: Heparin 5,000 UNITS/ML VIAL SC SCH ×2 (08:09→21:40)
[2022-12-23] MEDS: Aspirin 81 mg Enteric Coated Tablet PO SCH (08:09)
[2022-12-23] MEDS: Polyethylene Glycol 3350 17 GM Packet PO SCH (08:09)
[2022-12-23] MEDS: Famotidine 20 MG TAB PO SCH ×2 (08:09→21:41)
[2022-12-23] MEDS: Sodium Bicarbonate Tab 325 MG TAB PO SCH ×2 (09:55→21:41)
[2022-12-23] MEDS: Folic Acid 1 MG TAB PO SCH (21:41)
[2022-12-23] MEDS: Cyanocobalamin (Vitamin B-12) 1,000 MCG TAB PO SCH (21:41)
[2022-12-23] MEDS: Multivit, Therapeutic 1 TAB PO SCH (21:42)
[2022-12-23] MEDS: Atorvastatin Calcium 40 MG TAB PO SCH (21:42)
[2022-12-23] MEDS: Phenytoin Extended Release 100 MG CAP PO SCH (21:42)
[2022-12-24 05:03] LABS: #Eosinphils 0.2 thou/uL (0.0-0.7); #Monocytes 1.5 thou/uL (0.11-0.59); #Neutrophils 5.8 thou/uL (1.40-6.50); %Basophils 0.4 % (0.0-1.0); %Eosinophils 2.2 % (0.0-10.0); %Lymphocytes 22.8 % (21.0-51.0); %Monocytes 15.3 % (0.0-10.0); %Neutrophils 59.1 % (42.0-75.0); Hemoglobin 14.8 g/dL (14.0-18.0); Mean Corpuscular HGB CONC 33.4 g/dL (32.0-36.0); Mean Corpuscular Hemoglobin 30.3 pg (27.0-31.0); Mean Corpuscular Volume 90.8 fl (78.0-98.0); Platelet Count 311 10x3/uL (130-400); RBC Distribution Width 12.4 % (11.5-14.5); Red Blood Cell (RBC) Count 4.88 mill/uL (4.70-6.10); White Blood Cell (WBC) Count 9.8 10x3/uL (4.8-10.8)
[2022-12-24 08:17] LABS: Anion Gap 15 mmol/L (10-20); BUN (Urea Nitrogen) 18 mg/dL (8.4-25.7); Calc. Creatinine Clearance 89 mL/min (70-130); Calcium 9.7 mg/dL (7.8-10.44); Carbon Dioxide 21 mmol/L (22-29); Chloride 106 mmol/L (98-107); Estimated GFR 71; Glucose 73 mg/dL (70-105); Potassium 4.1 mmol/L (3.5-5.1); Sodium 138 mmol/L (136-145)
[2022-12-24] MEDS: Sodium Bicarbonate Tab 325 MG TAB PO SCH ×2 (08:39→20:15)
[2022-12-24] MEDS: hydrALAZINE 25 MG TAB PO SCH ×3 (08:39→20:16)
[2022-12-24] MEDS: Heparin 5,000 UNITS/ML VIAL SC SCH ×2 (08:40→20:17)
[2022-12-24] MEDS: Famotidine 20 MG TAB PO SCH ×2 (08:40→20:15)
[2022-12-24] MEDS: Amlodipine 10 MG TAB PO SCH (08:40)
[2022-12-24] MEDS: Clopidogrel Bisulfate 75 MG TAB PO SCH (08:40)
[2022-12-24] MEDS: Aspirin 81 mg Enteric Coated Tablet PO SCH (08:40)
[2022-12-24] MEDS: Polyethylene Glycol 3350 17 GM Packet PO SCH (08:41)
[2022-12-24] MEDS: Senokot S 8.6-50 MG TAB PO SCH ×2 (08:41→20:17)
[2022-12-24] MEDS ORDERED: Lisinopril 20 MG TAB PO SCH (10:15)
[2022-12-24] MEDS: Multivit, Therapeutic 1 TAB PO SCH (20:15)
[2022-12-24] MEDS: Phenytoin Extended Release 100 MG CAP PO SCH (20:16)
[2022-12-24] MEDS: Cyanocobalamin (Vitamin B-12) 1,000 MCG TAB PO SCH (20:16)
[2022-12-24] MEDS: Folic Acid 1 MG TAB PO SCH (20:16)
[2022-12-24] MEDS: Atorvastatin Calcium 40 MG TAB PO SCH (20:16)
[2022-12-25] MEDS ORDERED: Lisinopril 20 MG TAB PO SCH (09:00)
[2022-12-25] MEDS: Heparin 5,000 UNITS/ML VIAL SC SCH ×2 (09:30→22:10)
[2022-12-25] MEDS: hydrALAZINE 25 MG TAB PO SCH ×3 (09:34→22:08)
[2022-12-25] MEDS: Aspirin 81 mg Enteric Coated Tablet PO SCH (09:34)
[2022-12-25] MEDS: Lisinopril 20 MG TAB PO SCH (09:34)
[2022-12-25] MEDS: Amlodipine 10 MG TAB PO SCH (09:35)
[2022-12-25] MEDS: Famotidine 20 MG TAB PO SCH ×2 (09:35→22:09)
[2022-12-25] MEDS: Clopidogrel Bisulfate 75 MG TAB PO SCH (09:35)
[2022-12-25] MEDS: Senokot S 8.6-50 MG TAB PO SCH ×2 (09:35→22:09)
[2022-12-25] MEDS: Sodium Bicarbonate Tab 325 MG TAB PO SCH ×2 (09:36→22:07)
[2022-12-25] MEDS: Acetaminophen 325 MG TAB PO PRN ×2 (09:36→13:57)
[2022-12-25] MEDS: Polyethylene Glycol 3350 17 GM Packet PO SCH (09:36)
[2022-12-25] MEDS: Phenytoin Extended Release 100 MG CAP PO SCH (22:07)
[2022-12-25] MEDS: Cyanocobalamin (Vitamin B-12) 1,000 MCG TAB PO SCH (22:07)
[2022-12-25] MEDS: Folic Acid 1 MG TAB PO SCH (22:09)
[2022-12-25] MEDS: Multivit, Therapeutic 1 TAB PO SCH (22:09)
[2022-12-25] MEDS: Atorvastatin Calcium 40 MG TAB PO SCH (22:10)
[2022-12-26] MEDS: hydrALAZINE 20 MG/ML VIAL SLOW IVP PRN (05:39)
[2022-12-26 06:13] LABS: Albumin 4.1 g/dL (3.5-5.0); Anion Gap 15 mmol/L (10-20); BUN (Urea Nitrogen) 21 mg/dL (8.4-25.7); BUN/Creatinine Ratio 18.42; Calc. Creatinine Clearance 91 mL/min (70-130); Calcium 9.4 mg/dL (7.8-10.44); Carbon Dioxide 18 mmol/L (22-29); Chloride 108 mmol/L (98-107); Estimated GFR 74; Glucose 135 mg/dL (70-105); Phosphorus 3.3 mg/dL (2.3-4.7); Potassium 4.3 mmol/L (3.5-5.1); Sodium 137 mmol/L (136-145)
[2022-12-26] MEDS: Acetaminophen 325 MG TAB PO PRN (09:50)
[2022-12-26] MEDS: Clopidogrel Bisulfate 75 MG TAB PO SCH (09:52)
[2022-12-26] MEDS: Famotidine 20 MG TAB PO SCH ×2 (09:52→20:41)
[2022-12-26] MEDS: hydrALAZINE 25 MG TAB PO SCH ×3 (09:53→20:41)
[2022-12-26] MEDS: Amlodipine 10 MG TAB PO SCH (09:53)
[2022-12-26] MEDS: Aspirin 81 mg Enteric Coated Tablet PO SCH (09:53)
[2022-12-26] MEDS: Lisinopril 20 MG TAB PO SCH (09:53)
[2022-12-26] MEDS: Senokot S 8.6-50 MG TAB PO SCH ×2 (09:54→20:57)
[2022-12-26] MEDS: Polyethylene Glycol 3350 17 GM Packet PO SCH (09:54)
[2022-12-26] MEDS: Heparin 5,000 UNITS/ML VIAL SC SCH ×2 (09:56→20:57)
[2022-12-26] MEDS: Sodium Bicarbonate Tab 325 MG TAB PO SCH ×2 (10:02→20:40)
[2022-12-26] MEDS: Multivit, Therapeutic 1 TAB PO SCH (20:41)
[2022-12-26] MEDS: Cyanocobalamin (Vitamin B-12) 1,000 MCG TAB PO SCH (20:42)
[2022-12-26] MEDS: Atorvastatin Calcium 40 MG TAB PO SCH (20:42)
[2022-12-26] MEDS: Folic Acid 1 MG TAB PO SCH (20:42)
[2022-12-26] MEDS: Phenytoin Extended Release 100 MG CAP PO SCH (20:42)
[2022-12-27] MEDS: Sodium Bicarbonate Tab 325 MG TAB PO SCH ×2 (08:53→21:01)
[2022-12-27] MEDS: hydrALAZINE 25 MG TAB PO SCH ×3 (08:54→20:59)
[2022-12-27] MEDS: Amlodipine 10 MG TAB PO SCH (08:54)
[2022-12-27] MEDS: Famotidine 20 MG TAB PO SCH ×2 (08:55→21:01)
[2022-12-27] MEDS: Clopidogrel Bisulfate 75 MG TAB PO SCH (08:55)
[2022-12-27] MEDS: Aspirin 81 mg Enteric Coated Tablet PO SCH (08:55)
[2022-12-27] MEDS: Heparin 5,000 UNITS/ML VIAL SC SCH ×2 (08:55→21:09)
[2022-12-27] MEDS: Lisinopril 20 MG TAB PO SCH (08:55)
[2022-12-27] MEDS: Polyethylene Glycol 3350 17 GM Packet PO SCH (09:15)
[2022-12-27] MEDS: Senokot S 8.6-50 MG TAB PO SCH ×2 (09:16→21:09)
[2022-12-27] MEDS: Multivit, Therapeutic 1 TAB PO SCH (20:58)
[2022-12-27] MEDS: Cyanocobalamin (Vitamin B-12) 1,000 MCG TAB PO SCH (20:59)
[2022-12-27] MEDS: Atorvastatin Calcium 40 MG TAB PO SCH (20:59)
[2022-12-27] MEDS: Phenytoin Extended Release 100 MG CAP PO SCH (21:01)
[2022-12-27] MEDS: Folic Acid 1 MG TAB PO SCH (21:01)
[2022-12-28] MEDS: Sodium Bicarbonate Tab 325 MG TAB PO SCH ×2 (09:45→20:09)
[2022-12-28] MEDS: Clopidogrel Bisulfate 75 MG TAB PO SCH (09:46)
[2022-12-28] MEDS: Lisinopril 20 MG TAB PO SCH (09:46)
[2022-12-28] MEDS: Aspirin 81 mg Enteric Coated Tablet PO SCH (09:47)
[2022-12-28] MEDS: Amlodipine 10 MG TAB PO SCH (09:47)
[2022-12-28] MEDS: Famotidine 20 MG TAB PO SCH ×2 (09:47→20:10)
[2022-12-28] MEDS: hydrALAZINE 25 MG TAB PO SCH ×3 (09:47→20:09)
[2022-12-28] MEDS: Heparin 5,000 UNITS/ML VIAL SC SCH ×2 (09:47→20:11)
[2022-12-28] MEDS: Polyethylene Glycol 3350 17 GM Packet PO SCH (09:49)
[2022-12-28] MEDS: Senokot S 8.6-50 MG TAB PO SCH ×2 (09:49→20:09)
[2022-12-28 12:30] VITALS: BMI 30.9
[2022-12-28] MEDS: Phenytoin Extended Release 100 MG CAP PO SCH (20:09)
[2022-12-28] MEDS: Folic Acid 1 MG TAB PO SCH (20:09)
[2022-12-28] MEDS: Atorvastatin Calcium 40 MG TAB PO SCH (20:09)
[2022-12-28] MEDS: Multivit, Therapeutic 1 TAB PO SCH (20:10)
[2022-12-28] MEDS: Cyanocobalamin (Vitamin B-12) 1,000 MCG TAB PO SCH (20:13)
[2022-12-29 07:14] LABS: Albumin 3.8 g/dL (3.5-5.0); Anion Gap 13 mmol/L (10-20); BUN (Urea Nitrogen) 22 mg/dL (8.4-25.7); BUN/Creatinine Ratio 19.47; Calc. Creatinine Clearance 91 mL/min (70-130); Calcium 8.9 mg/dL (7.8-10.44); Carbon Dioxide 19 mmol/L (22-29); Chloride 109 mmol/L (98-107); Estimated GFR 74; Glucose 95 mg/dL (70-105); Phosphorus 3.3 mg/dL (2.3-4.7); Potassium 4.3 mmol/L (3.5-5.1); Sodium 137 mmol/L (136-145)
[2022-12-29] MEDS: Lisinopril 20 MG TAB PO SCH (09:15)
[2022-12-29] MEDS: Sodium Bicarbonate Tab 325 MG TAB PO SCH ×2 (09:16→20:04)
[2022-12-29] MEDS: hydrALAZINE 25 MG TAB PO SCH ×3 (09:16→20:04)
[2022-12-29] MEDS: Clopidogrel Bisulfate 75 MG TAB PO SCH (09:17)
[2022-12-29] MEDS: Aspirin 81 mg Enteric Coated Tablet PO SCH (09:17)
[2022-12-29] MEDS: Famotidine 20 MG TAB PO SCH ×2 (09:17→20:04)
[2022-12-29] MEDS: Heparin 5,000 UNITS/ML VIAL SC SCH ×2 (09:17→20:15)
[2022-12-29] MEDS: Amlodipine 10 MG TAB PO SCH (09:17)
[2022-12-29] MEDS: Polyethylene Glycol 3350 17 GM Packet PO SCH (09:18)
[2022-12-29] MEDS: Senokot S 8.6-50 MG TAB PO SCH ×2 (09:18→20:15)
[2022-12-29] MEDS: Phenytoin Extended Release 100 MG CAP PO SCH (20:03)
[2022-12-29] MEDS: Multivit, Therapeutic 1 TAB PO SCH (20:04)
[2022-12-29] MEDS: Cyanocobalamin (Vitamin B-12) 1,000 MCG TAB PO SCH (20:04)
[2022-12-29] MEDS: Folic Acid 1 MG TAB PO SCH (20:04)
[2022-12-29] MEDS: Atorvastatin Calcium 40 MG TAB PO SCH (20:04)
[2022-12-30] MEDS: Clopidogrel Bisulfate 75 MG TAB PO SCH (09:12)
[2022-12-30] MEDS: Senokot S 8.6-50 MG TAB PO SCH ×2 (09:12→20:10)
[2022-12-30] MEDS: Famotidine 20 MG TAB PO SCH ×2 (09:12→20:13)
[2022-12-30] MEDS: Aspirin 81 mg Enteric Coated Tablet PO SCH (09:13)
[2022-12-30] MEDS: Sodium Bicarbonate Tab 325 MG TAB PO SCH ×2 (09:13→20:13)
[2022-12-30] MEDS: Lisinopril 20 MG TAB PO SCH (09:13)
[2022-12-30] MEDS: Acetaminophen 325 MG TAB PO PRN ×2 (09:13→22:43)
[2022-12-30] MEDS: Heparin 5,000 UNITS/ML VIAL SC SCH ×2 (09:14→20:09)
[2022-12-30] MEDS: hydrALAZINE 25 MG TAB PO SCH ×3 (09:14→20:12)
[2022-12-30] MEDS ORDERED: NIFEdipine XL 60 MG TAB PO SCH ×2 (09:15→21:00)
[2022-12-30] MEDS: Amlodipine 10 MG TAB PO SCH (09:20)
[2022-12-30] MEDS: Polyethylene Glycol 3350 17 GM Packet PO SCH (09:59)
[2022-12-30] MEDS: Phenytoin Extended Release 100 MG CAP PO SCH (20:11)
[2022-12-30] MEDS: Atorvastatin Calcium 40 MG TAB PO SCH (20:12)
[2022-12-30] MEDS: Multivit, Therapeutic 1 TAB PO SCH (20:13)
[2022-12-30] MEDS: Folic Acid 1 MG TAB PO SCH (20:13)
[2022-12-30] MEDS: Cyanocobalamin (Vitamin B-12) 1,000 MCG TAB PO SCH (20:14)
[2022-12-30 20:31] VITALS: TEMP 97.7
[2022-12-30] MEDS: hydrALAZINE 20 MG/ML VIAL SLOW IVP PRN (22:34)
[2022-12-31 00:11] VITALS: BP 154/89
[2023-01-03 17:38] LABS: Metanephrine,Ur 347 ug/L (Undefined); Metanephrines Total-24H 416 ug/24 hr (58-276); Normetanephrine,Ur 950 ug/L (Undefined); Normetanephrines-24H U 1140 ug/24 hr (156-729)
[2023-01-04 09:14] LABS: Metanephrine,Plasma 86.1 pg/mL (0.0-88.0); Normetanephrine,Pl 63.6 pg/mL (0.0-244.0)
== END 2022-12-30 23:37 | disposition short-term general hospital (02) | DRG 62 ==
LOC: ERS 13:18 → EEVIPCON 13:18 → CCU 15:19 → NEURO 12-15 20:34 → 2SE 12-20 11:52
PROVIDERS: ADMIT Family Medicine; ATTEND Internal Medicine
DX: I63.232 Cerebral infarction due to unspecified occlusion or stenosis of left carotid arteries (principal); E87.20 Acidosis, unspecified; G81.91 Hemiplegia, unspecified affecting right dominant side; N17.9 Acute kidney failure, unspecified; G81.94 Hemiplegia, unspecified affecting left nondominant side; R47.01 Aphasia; R29.723 NIHSS score 23; E03.9 Hypothyroidism, unspecified; G40.909 Epilepsy, unspecified, not intractable, without status epilepticus; R00.1 Bradycardia, unspecified; I12.9 Hypertensive chronic kidney disease with stage 1 through stage 4 chronic kidney disease, or unspecified chronic kidney disease; N18.2 Chronic kidney disease, stage 2 (mild); K59.00 Constipation, unspecified; I70.1 Atherosclerosis of renal artery; E66.9 Obesity, unspecified; N40.1 Benign prostatic hyperplasia with lower urinary tract symptoms; R47.81 Slurred speech; E86.9 Volume depletion, unspecified; Z82.3 Family history of stroke; Z79.01 Long term (current) use of anticoagulants; Z80.42 Family history of malignant neoplasm of prostate; Z88.0 Allergy status to penicillin; Z88.1 Allergy status to other antibiotic agents; Z79.899 Other long term (current) drug therapy; Z79.82 Long term (current) use of aspirin; Z85.038 Personal history of other malignant neoplasm of large intestine; Z90.49 Acquired absence of other specified parts of digestive tract; Z68.30 Body mass index [BMI] 30.0-30.9, adult; Z80.41 Family history of malignant neoplasm of ovary; Z79.02 Long term (current) use of antithrombotics/antiplatelets; E78.00 Pure hypercholesterolemia, unspecified; R47.1 Dysarthria and anarthria
CPT/HCPCS: 36415; 70450; 70496; 70498; 70551; 71045; 76770; 80048; 80053; 80061; 80069; 81001; 82088; 82550; 82570; 83036; 83605; 83735; 83835; 84100; 84156; 84244; 84300; 84439; 84443; 84484; 84540; 85025; 85610; 85730; 93005; 93010; 93306; 94760; J0360; J1644; J1650; J3101; J3490; J7050; J7070; Q2009; Q9967; S0028